=== PATIENT | male | born 1995 | race Two or more races ===

== ENCOUNTER 2020-01-19 11:03 | Emergency (ER) | payer OTHER, SELFPAY ==
--- NOTE | 2020-01-19 | CT_ITS ---
EXAMINATION: CT HEAD WITHOUT CONTRAST. CT FACIAL BONES WITHOUT CONTRAST. CLINICAL INFORMATION: Trauma. Possible nasal fracture. Headache and nausea COMPARISON: None TECHNIQUE: A noncontrast CT of the head and a noncontrast CT of the facial bones with sagittal and coronal reformats. This CT examination was performed using dose optimization techniques as appropriate, variously including the following: *Automated exposure control *Adjustment of mA and/or kV according to patient size (this includes techniques or standardized protocols for targeted exams where dose is matched to indication/reason for exam; i.e. extremities or head) *Use of iterative reconstruction technique. DLP: [id number] FINDINGS: No intra-axial or extra-axial hemorrhage. No acute territorial infarct. Ventricles and sulci appear normal. Preservation of sharpe-white matter differentiation. No mass, mass effect, or midline shift. No fracture. The mastoid air cells and visualized paranasal sinuses are clear. There is no nasal or facial bone fracture. Paranasal sinuses are clear. Ostiomeatal units are patent. Normal globes and orbits. There is a lucency surrounding the crown a partially impacted right posterior mandibular molar. IMPRESSION: No acute intracranial abnormality. No facial bone fracture.
--- NOTE | 2020-01-19 12:48 | PC.NURSE ---
Pt swearing. States has h/a, refusing tylenol. Only wants a perc.
[2020-01-19 12:56] VITALS: BP 133/90; PULSE 61; RESP 18; TEMP 37.1; O2SAT 99; BMI 26.6
--- NOTE | 2020-01-19 13:51 | ED.HEATRA ---
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 Reports dizziness and nausea after the injury, now resolved. MD Complaint: head injury and head pain Onset (ago): hour(s) (5) Mechanism of Injury: work related injury Place: work Loss of Consciousness: no Location of injury: face Severity: moderate Severity scale (1-10): 4 Other Injuries: laceration (small superficial laceration to bridge of nose) Associated symptoms: denies other symptoms Related Data Allergies Allergy/AdvReac Type Severity Reaction Status Date / Time No Known Allergies Allergy Verified 01/19/20 13:36 Review of Systems Constitutional: Constitutional: Reports as per HPI and Reports headache(s) Eyes: Eyes: Reports no additional eye complaints ENT: Reports headache(s), Reports nasal trauma (mild ), Denies neck pain, Reports nose pain (mild ), Denies tinnitus and Denies sinus pain Musculoskeletal: Musculoskeletal: Reports no additional musculoskeletal complaints and Denies neck pain Neurologic: Reports system reviewed and no additional complaints, except as documented and Reports headache(s) Hematologic/Lymphatic: Hematologic/Lymphatic: Reports no additional hematologic/lymphatic complaints PMFSH Past Medical History Attestation statement: The following information was validated with the patient. Medical History No known health problems Social History Social History Alcohol intake: current Alcohol intake frequency: 0-2 drinks per day Smoking Status: Current some day smoker Smoked in Last 30 Days: Yes Use of substances other than those prescribed or required for medical reasons: No Advance Directives: No Advance Directives Information Provided: Yes Physical Exam Vital Signs and I&O and Narrative: Vital Signs and I&O: Vital Signs Temp 98.2 F 01/19/20 14:22 Pulse 64 01/19/20 14:22 Resp 18 01/19/20 14:22 BP 138/68 01/19/20 14:22 Pulse Ox 100 01/19/20 14:22 Intake & Output 01/18/20 01/19/20 01/19/20 18:59 06:59 18:59 Weight 81.647 kg Body Mass Index 26.6 Const: General: cooperative, healthy appearing, comfortable and no acute distress Orientation/consciousness: oriented to person, oriented to place and oriented to time Limitations: no limitations HENMT: Ears: hearing grossly normal bilaterally General nose exam: Normal nares present, Normal nasal mucous membranes and turbinates present, Normal septum present and No nasal discharge present Face and sinus: Yes sinuses nontender, Yes face symmetric and Yes laceration Face images: 1. superficial laceration, mild ecchymosis Mouth: Normal oral and palatal mucosa present Teeth and gingiva: dentition normal Throat: Yes posterior oropharynx normal Eyes: General: appearance normal, both eyes and all related structures Pupils: Equal, round and reactive pupils present Neck: Neck: Yes normal visual inspection and Yes full ROM Chest: Chest palpation & inspection: normal inspection of the chest and normal palpation of entire chest wall Resp: Auscultation: clear to auscultation bilaterally Cardio: Rate: regular rate Rhythm: regular rhythm Heart sounds: S1 normal heart sound present and S2 normal heart sound present Neuro: General: oriented to person, oriented to place and oriented to time Cranial nerves: Yes CN's II-XII intact bilaterally and Yes Equal, round and reactive pupils present Cognition (Neuro): normal cognition Gait exam (Neuro): Normal gait present Motor exam (neuro): 5/5 motor strength present throughout Psych: Appearance: grossly normal Mental Status: mental status grossly normal Speech and movement: Normal speech and movement present Affect: normal affect Attitude: cooperative Course Course Hospital Course: 24 y/o healthy male here with work related injury to superior nasal bone after walking into a fork lift. Possible concussion with initial dizziness/nausea. Now resolved. Will monitor closely in the ER. CT scan of brain/facial bones pending. Low suspicion for nasal bone fracture. Reevaluation(s) Reevaluation #1: CT head and facial bones are negative. No N/V here. Headache improved after Tylenol. Stable for discharge. Time: 15:26 MDM - Head Injury Differential Diagnosis Differential diagnosis: Likely concussion without loss of consciousness, epidural hematoma, closed head injury and postconcussion syndrome Medical Records Attestation: I reviewed the patient's medical records. Critical Care Time Critical Care Time Critical Care Time: No Discharge Plan Discharge Clinical Impression: Concussion Qualifiers: Encounter type: initial encounter Loss of consciousness presence/duration: without LOC Qualified Code(s): S06.0X0A - Concussion without loss of consciousness, initial encounter Patient Disposition: Home, Self-Care Instructions: Concussion (ED) Additional Instructions: If you develop persistent nausea and vomiting, return to the ER for further evaluation. Minimize screen time today, rest, stay hydrated. Take Tylenol or motrin for headache. Stand Alone Forms: Work/School Release
[2020-01-19 14:22] VITALS: BP 138/68; PULSE 64; RESP 18; TEMP 36.8; O2SAT 100
== END 2020-01-19 15:37 | disposition home or self-care (01) ==
PROVIDERS: Emergency Provider Emergency Medicine
DX: S06.0X0A Concussion without loss of consciousness, initial encounter (principal); W22.8XXA Striking against or struck by other objects, initial encounter; F17.200 Nicotine dependence, unspecified, uncomplicated; Y93.89 Activity, other specified; Y92.69 Other specified industrial and construction area as the place of occurrence of the external cause; Y99.0 Civilian activity done for income or pay
CPT/HCPCS: 70450; 70486; 99284

== ENCOUNTER 2020-02-24 10:25 | Emergency (ER) | payer OTHER, SELFPAY ==
[2020-02-24 10:37] VITALS: BP 127/83; PULSE 76; RESP 17; TEMP 36.6; O2SAT 98; BMI 25.8
--- NOTE | 2020-02-24 10:59 | XR_ITS ---
EXAMINATION: RIGHT FOOT AND RIGHT ANKLE. CLINICAL INFORMATION: Crush injury. Pain. COMPARISON: None TECHNIQUE: 3 views right ankle and 2 views right foot. FINDINGS: Right ankle: There is no visible acute fracture, dislocation or subluxation seen. The ankle mortise and subtalar joints are normal. Right foot: There is no visible acute fracture, dislocation or subluxation seen. The soft tissues are normal. XR/XR ankle RT 2V IMPRESSION: Unremarkable right ankle. Unremarkable right foot exam.
--- NOTE | 2020-02-24 10:59 | XR_ITS ---
EXAMINATION: RIGHT FOOT AND RIGHT ANKLE. CLINICAL INFORMATION: Crush injury. Pain. COMPARISON: None TECHNIQUE: 3 views right ankle and 2 views right foot. FINDINGS: Right ankle: There is no visible acute fracture, dislocation or subluxation seen. The ankle mortise and subtalar joints are normal. Right foot: There is no visible acute fracture, dislocation or subluxation seen. The soft tissues are normal. XR/XR foot RT min 3V IMPRESSION: Unremarkable right ankle. Unremarkable right foot exam.
--- NOTE | 2020-02-24 11:10 | ED.LOWEXIN ---
HPI - Extremity Injury (Lower) General Chief Complaint: Extremity Injury, Lower Stated Complaint: R ANKLE INJ AT WORK Time Seen by Provider: 02/24/20 10:53 Source: patient Mode of arrival: ambulatory History of Present Illness HPI Narrative: 24-year-old male with no significant past medical history presenting to the ED complaining of right foot/ankle pain s/p crush injury at work 2 days ago. 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 Has been ambulating with difficulty due to pain. Denies injury to other area. Reports associated tingling and pain with ROM MD complaint: ankle injury and foot injury Related Data Allergies Allergy/AdvReac Type Severity Reaction Status Date / Time No Known Allergies Allergy Verified 01/19/20 13:36 Review of Systems Review of Systems: Constitutional: No Weight loss, No Fever, No Chills Musculoskeletal: + joint pain, No Myalgias, + Joint Swelling Skin: No Skin Lesions, No rash Neuro: No Weakness, +tingling, No Paresthesias PMFSH Past Medical History Attestation statement: The following information was validated with the patient. Medical History No known health problems Social History Social History Alcohol intake: current Alcohol intake frequency: 0-2 drinks per day Smoking Status: Current some day smoker Advance Directives: No Advance Directives Information Provided: Yes Physical Exam Vital Signs: Vital Signs: Last Vital Signs Temp 97.9 F 02/24/20 10:37 Pulse 76 02/24/20 10:37 Resp 17 02/24/20 10:37 BP 127/83 02/24/20 10:37 Pulse Ox 98 02/24/20 10:37 Body Mass Index 25.8 Const: General: cooperative and healthy appearing Orientation/consciousness: patient oriented x3 Limitations: no limitations HENMT: Head: Yes normal to inspection Ears: hearing grossly normal bilaterally General nose exam: Normal external nose present Face and sinus: Yes normal facial exam Eyes: General: appearance normal, both eyes and all related structures EOM: EOMs intact bilaterally Neck: Neck: Yes normal visual inspection Resp: Effort & Inspection: normal respiratory effort Cardio: Peripheral pulses: dorsalis pedis present Skin: Rashes: no rashes Wounds: no wounds Neuro: General: patient oriented x3 Gait exam (Neuro): Normal gait present Extrem: Other: + right ankle/foot with mild swelling > medial aspect with slight erythema to medial malleolus. +ttp to ankle and proximal foot. Limited range of motion to ankle 2/2 pain. toes ROM WNL, NV intact, sensation intact to light touch General: Yes normal to inspection Course Course Course Narrative: -foot and ankle x-ray unremarkable > patient placed in AMEYA wrap in the ED for comfort/stability MDM - Extremity Injury (Lower) MDM Narrative Medical decision making narrative: Rule out fracture versus sprain Discharge Plan Discharge Clinical Impression: Ankle sprain and strain Patient Disposition: Home, Self-Care Instructions: Ankle Sprain (ED) Additional Instructions: Your x-rays were unremarkable Your placed in an Ameya wrap in the ED, where it at home for comfort/stability, you may take it off to shower/sleep Ice and elevate her ankle/foot Take Tylenol and Motrin at home for pain/swelling Follow up with your doctor Referrals: Physician,None [Primary Care Provider] - 1 week (As needed)
== END 2020-02-24 11:47 | disposition home or self-care (01) ==
PROVIDERS: Emergency Provider Emergency Medicine
DX: M25.571 Pain in right ankle and joints of right foot (principal); F17.200 Nicotine dependence, unspecified, uncomplicated; Z71.6 Tobacco abuse counseling
CPT/HCPCS: 73600; 73630; 99283

== ENCOUNTER 2020-03-05 08:51 | Emergency (ER) | payer OTHER, SELFPAY ==
[2020-03-05 09:00] VITALS: BP 106/59; PULSE 61; RESP 16; TEMP 36.6; O2SAT 98; BMI 25.2
--- NOTE | 2020-03-05 09:18 | ED.LOWEXIN ---
HPI - Extremity Injury (Lower) General Chief Complaint: Extremity Injury, Lower Stated Complaint: work note Time Seen by Provider: 03/05/20 09:18 History of Present Illness HPI Narrative: Patient is here for work clearance to return to work after a right ankle injury 2 weeks ago, he says he is all better has no limp no pain and wants to go back to work Related Data Allergies Allergy/AdvReac Type Severity Reaction Status Date / Time No Known Allergies Allergy Verified 01/19/20 13:36 Review of Systems Review of Systems: Patient denies right ankle pain, denies right ankle swelling denies numbness or weakness denies fever or chills denies any problem walking or using right ankle Yes all other systems are reviewed and are negative PMFSH Past Medical History Source: nursing notes reviewed Medical History No known health problems Social History Social History Alcohol intake: current Alcohol intake frequency: 0-2 drinks per day Smoking Status: Current some day smoker Advance Directives: No Advance Directives Information Provided: Yes Physical Exam Vital Signs: Vital Signs: Last Vital Signs Temp 97.8 F 03/05/20 09:00 Pulse 61 03/05/20 09:00 Resp 16 03/05/20 09:00 BP 106/59 L 03/05/20 09:00 Pulse Ox 98 03/05/20 09:00 Body Mass Index 25.2 General appearance no distress, A&O x3 Neck is supple Respiratory no distress Extremities the right ankle is normal in appearance the skin is normal is no ecchymosis no swelling no tenderness there is a full range of motion He is tested walking he can walk on his toes he can walk with a normal gait Neuro no focal deficit, no motor or sensory deficit in right leg Course Course Course Narrative: Patient seems to be fully recovered and is given a note clearing him to return to work Discharge Plan Discharge Clinical Impression: Ankle injury Qualifiers: Encounter type: subsequent encounter Laterality: right Qualified Code(s): S99.911D - Unspecified injury of right ankle, subsequent encounter Patient Disposition: Home, Self-Care Additional Instructions: Right ankle is better in your okay to work return to work Follow with [facility] if needed for any further problems from this work injury Referrals: [facility] [Provider Group] - 2 days Stand Alone Forms: Work/School Release Interventions: ED Discharge Assessment Last Done: 03/05/20 09:31 Discharge Date/Time: 03/05/20 09:30
== END 2020-03-05 09:30 | disposition home or self-care (01) ==
PROVIDERS: Emergency Provider Emergency Medicine
DX: S99.911A Unspecified injury of right ankle, initial encounter (principal); M25.571 Pain in right ankle and joints of right foot; X58.XXXA Exposure to other specified factors, initial encounter; Y93.9 Activity, unspecified; Y92.9 Unspecified place or not applicable; Y99.9 Unspecified external cause status; F17.200 Nicotine dependence, unspecified, uncomplicated; Z71.6 Tobacco abuse counseling
CPT/HCPCS: 99283

== ENCOUNTER 2020-05-08 14:27 | Emergency (ER) | payer OTHER, SELFPAY ==
[2020-05-08 15:05] VITALS: BP 116/77; PULSE 75; RESP 20; TEMP 36.9; O2SAT 98; BMI 26.6
--- NOTE | 2020-05-08 15:10 | ED.MEDCLEAR ---
HPI - Medical Clearance General Chief complaint: Medical Clearance <Emely Escobar NP - Last Filed: 05/08/20 15:14> Stated complaint: MED CLEARANCE <Emely Escobar NP - Last Filed: 05/08/20 15:14> Time Seen by Provider: 05/08/20 15:05 <Emely Escobar NP - Last Filed: 05/08/20 15:14> Source: patient <Emely Escobar NP - Last Filed: 05/08/20 15:14> Mode of arrival: ambulatory <Emely Escobar NP - Last Filed: 05/08/20 15:14> Limitations: no limitations <Emely Escobar NP - Last Filed: 05/08/20 15:14> History of Present Illness HPI Narrative: Pt tells me 03/05 he had his RLE pinned between a wall and a forklift with a pallet. He was seen in the ED and had negative x-rays. he tells me he returned to work for a short time but then was laid off. He has had persistent pain in his RLE since then but is here today for a note so he can return to work. He tells me they want him back there working and even though he has pain he wants to return to work. He has not followed up with [facility] or occupational health. <Emely Escobar NP - Last Filed: 05/08/20 15:14> MD complaint: medical clearance requested <Emely Escobar NP - Last Filed: 05/08/20 15:14> Onset (ago): month(s) <Emely Escobar NP - Last Filed: 05/08/20 15:14> Reason for Medical Clearance: other trauma <Emely Escobar NP - Last Filed: 05/08/20 15:14> Place: work <Emely Escobar NP - Last Filed: 05/08/20 15:14> Traumatic Symptoms: extremity injury <Emely Escobar NP - Last Filed: 05/08/20 15:14> Associated Symptoms: denies other symptoms <Emely Escobar NP - Last Filed: 05/08/20 15:14> Treatments Prior to Arrival: none <Emely Escobar NP - Last Filed: 05/08/20 15:14> Related Information Allergies/Adverse reactions: Allergies Allergy/AdvReac Type Severity Reaction Status Date / Time No Known Allergies Allergy Verified 01/19/20 13:36 <Emely Escobar NP - Last Filed: 05/08/20 15:14> Review of Systems Review of Systems: Yes all other systems are reviewed and are negative <Emely Escobar NP - Last Filed: 05/08/20 15:14> Constitutional: Constitutional: Reports no additional constitutional complaints, Denies body ache(s), Denies chills, Denies fever(s), Denies headache(s) and Denies weakness <Emely Escobar NP - Last Filed: 05/08/20 15:14> Eyes: Eyes: Reports no additional eye complaints and Denies change in vision <Emely Escobar NP - Last Filed: 05/08/20 15:14> ENT: Reports system reviewed and no additional complaints, except as documented, Denies dizziness, Denies headache(s), Denies nasal congestion, Denies nasal discharge and Denies neck pain <Emely Escobar NP - Last Filed: 05/08/20 15:14> Cardiovascular: Cardiovascular: Reports no additional cardiovascular complaints, Denies chest pain, Denies leg edema and Denies dyspnea <Emely Escobar NP - Last Filed: 05/08/20 15:14> Respiratory: Respiratory: Reports no additional respiratory complaints, Denies cough and Denies dyspnea <Emely Escobar NP - Last Filed: 05/08/20 15:14> Gastrointestinal: Gastrointestinal: Reports no additional gastrointestinal complaints, Denies abdominal pain, Denies diarrhea, Denies nausea and Denies vomiting <Emely Escobar NP - Last Filed: 05/08/20 15:14> Genitourinary: Genitourinary: Denies urinary incontinence <Emely Escobar NP - Last Filed: 05/08/20 15:14> Musculoskeletal: Musculoskeletal: Reports no additional musculoskeletal complaints, Denies back pain, Denies deformity, Reports arthralgias, Reports joint swelling, Denies neck pain, Denies numbness and Denies tingling <Emely Escobar NP - Last Filed: 05/08/20 15:14> Integumentary/Breasts: Skin/Breast: Reports system reviewed and no additional complaints, except as docu and Denies rash <Emely Escobar NP - Last Filed: 05/08/20 15:14> Neurologic: Reports system reviewed and no additional complaints, except as documented, Denies Abnormal speech present, Denies dizziness, Denies headache(s), Denies numbness, Denies tingling and Denies weakness <Emely Escobar NP - Last Filed: 05/08/20 15:14> [facility] Past Medical History Attestation statement: The following information was validated with the patient. <Emely Escobar NP - Last Filed: 05/08/20 15:14> Source: old records reviewed and nursing notes reviewed <Emely Escobar NP - Last Filed: 05/08/20 15:14> Medical History: Medical History No known health problems <Emely Escobar NP - Last Filed: 05/08/20 15:14> Social History Social History: Social History Alcohol intake: current Alcohol intake frequency: 0-2 drinks per day Smoking Status: Current some day smoker <Emely Escobar NP - Last Filed: 05/08/20 15:14> Physical Exam Vital Signs: Vital Signs: Last Vital Signs Temp 98.4 F 05/08/20 15:05 Pulse 75 05/08/20 15:05 Resp 20 05/08/20 15:05 BP 116/77 05/08/20 15:05 Pulse Ox 98 05/08/20 15:05 Body Mass Index 26.6 <Emely Escobar NP - Last Filed: 05/08/20 15:14> Vital Signs: Last Vital Signs Temp 98.4 F 05/08/20 15:05 Pulse 75 05/08/20 15:05 Resp 20 05/08/20 15:05 BP 116/77 05/08/20 15:05 Pulse Ox 98 05/08/20 15:05 Body Mass Index 26.6 <Herman Garay MD - Last Filed: 05/16/20 08:20> Const: General: cooperative, healthy appearing, comfortable and no acute distress <Emely Escobar NP - Last Filed: 05/08/20 15:14> Orientation/consciousness: patient oriented x3 <Emely Escobar NP - Last Filed: 05/08/20 15:14> Limitations: no limitations <Emely Escobar NP - Last Filed: 05/08/20 15:14> HENMT: Head: Yes normal to inspection <Emely Escobar NP - Last Filed: 05/08/20 15:14> Ears: hearing grossly normal bilaterally <Emely Escobar NP - Last Filed: 05/08/20 15:14> General nose exam: Normal external nose present <Emely Escobar NP - Last Filed: 05/08/20 15:14> Face and sinus: Yes normal facial exam <Emely Escobar NP - Last Filed: 05/08/20 15:14> Mouth: Normal oral and palatal mucosa present <Emely Escobar NP - Last Filed: 05/08/20 15:14> Throat: Yes posterior oropharynx normal <Emely Escobar NP - Last Filed: 05/08/20 15:14> Eyes: General: appearance normal, both eyes and all related structures <Emely Escobar NP - Last Filed: 05/08/20 15:14> Pupils: Equal, round and reactive pupils present <Emely Escobar NP - Last Filed: 05/08/20 15:14> Neck: Neck: Yes normal visual inspection <Emely Escobar NP - Last Filed: 05/08/20 15:14> Chest: Chest palpation & inspection: normal inspection of the chest <Emely Escobar NP - Last Filed: 05/08/20 15:14> Resp: Effort & Inspection: normal respiratory effort <Emely Escobar NP - Last Filed: 05/08/20 15:14> Auscultation: clear to auscultation bilaterally <Emely Escobar [employer] SUPERVIS[employer] - Last Filed: 05/08/20 15:14> Cardio: Rate: regular rate <Emely Escobar [employer]PER[employer] - Last Filed: 05/08/20 15:14> Rhythm: regular rhythm <Emely Escobar [employer]PER[employer] - Last Filed: 05/08/20 15:14> Peripheral pulses: Peripheral pulses 2+ throughout <Emely Escobar [employer]PER[employer] - Last Filed: 05/08/20 15:14> GI: Inspection: Yes normal to inspection <Emely Escobar NP - Last Filed: 05/08/20 15:14> Palpation (GI): Soft to palpation and nontender <Emely Escobar [employer] - Last Filed: 05/08/20 15:14> Auscultation: normal bowel sounds <Emely Escobar [employer] - Last Filed: 05/08/20 15:14> Back/Spine/Pelvis: Thoracic/Lumbar Spine: thoracic and lumbar spine normal to inspection <Emely Escobar [employer] - Last Filed: 05/08/20 15:14> Skin: General skin exam: no rashes or lesions noted <Emely Escobar NP - Last Filed: 05/08/20 15:14> Neuro: General: patient oriented x3, no focal motor deficits and normal sensation to monofilament <Emely Escobar [employer]PER[employer] - Last Filed: 05/08/20 15:14> Cranial nerves: Yes Equal, round and reactive pupils present <Emely Escobar [employer]PER[employer] - Last Filed: 05/08/20 15:14> Cognition (Neuro): normal cognition <Emely Escobar NP - Last Filed: 05/08/20 15:14> Speech: No Abnormal speech present <Emely Escobar NP - Last Filed: 05/08/20 15:14> Gait exam (Neuro): Normal gait present <Emely Escobar NP - Last Filed: 01/19/21 15:14> Motor exam (neuro): 5/5 motor strength present throughout <Emely Escobar NP - Last Filed: 05/08/20 15:14> Extrem: Other: Pain to the right lateral ankle, worsened with weight bearing. Pain with dorsi and plantar flexion. Palpable pulses distally. NV intact distally. <Emely Escobar NP - Last Filed: 05/08/20 15:14> General: Yes normal to inspection <Emely Escobar NP - Last Filed: 05/08/20 15:14> Course Course Course Narrative: 25 yo male here with RLE pain seeking clearance to return to work however has persistent pain with weight bearing and with palpation. Explained to patient he needs to follow-up with work connection to return to work. Reviewed worrisome signs/symptoms with patient and when to return to ED. comfortable with discharge home. <Emely Escobar NP - Last Filed: 05/08/20 15:14> I have reviewed the chart <Herman Garay MD - Last Filed: 05/16/20 08:20> Discharge Plan Discharge Clinical Impression: Chronic ankle pain <Emely Escobar NP - Last Filed: 05/08/20 15:14> Patient Disposition: Home, Self-Care <Emely Escobar NP - Last Filed: 05/08/20 15:14> Instructions: Arthralgia (ED) <Emely Escobar NP - Last Filed: 05/08/20 15:14> Additional Instructions: Call work [facility] to see them to be cleared to return to work as this was a work related injury [facility] [phone] <Emely Escobar NP - Last Filed: 05/08/20 15:14> Interventions: ED Discharge Assessment Last Done: 05/08/20 15:26 <Emely Escobar NP - Last Filed: 05/08/20 15:14> Discharge Date/Time: 05/08/20 15:27 <Emely Escobar NP - Last Filed: 05/08/20 15:14>
== END 2020-05-08 15:27 | disposition home or self-care (01) ==
PROVIDERS: Emergency Provider Emergency Medicine
DX: Z04.2 Encounter for examination and observation following work accident (principal); M25.571 Pain in right ankle and joints of right foot
CPT/HCPCS: 99283

== ENCOUNTER → 2020-05-09 14:34 | Outpatient (BNVA) | payer OTHER, SELFPAY | PROVIDERS: Visit Provider Internal Medicine | DX: S90.31XD Contusion of right foot, subsequent encounter (principal); S90.01XD Contusion of right ankle, subsequent encounter; X58.XXXD Exposure to other specified factors, subsequent encounter | CPT/HCPCS: 73600; 73630; 99203 ==

== ENCOUNTER 2022-02-03 19:15 | Emergency (ER) | payer SELFPAY ==
--- NOTE | ~2022-02-03 | XR_ITS ---
EXAMINATION: XR FOOT, LEFT CLINICAL INFORMATION: Pain with walking COMPARISON: Right foot radiographs 05/09/2020 TECHNIQUE: AP, lateral, and oblique views of the left foot. FINDINGS: The bones and soft tissues are normal. No fracture. Alignment is anatomic. Joint spaces are maintained. XR/XR foot LT 2V IMPRESSION: Normal left foot.
[2022-02-03 19:37] VITALS: BP 130/72; PULSE 69; RESP 17; TEMP 36.8; O2SAT 99; BMI 27.3
[2022-02-03 22:11] VITALS: BP 118/80; PULSE 64; RESP 20; TEMP 36.8; O2SAT 99
--- NOTE | 2022-02-03 22:40 | ED.GENADULT ---
HPI - General Adult General Chief complaint: Extremity Injury, Lower Stated complaint: foot pain Time Seen by Provider: 02/03/22 21:58 Source: patient Mode of arrival: ambulatory Limitations: no limitations History of Present Illness HPI narrative: 26 yold male presents to the ED for left foot pain. patient unware of any trauma to foot. patient states Thursday he went walking and pumpkin pickin with his kids and ever since he has pain in left foot. patinet denies any blunt trauma to foot, falling, redness, leg swelling, calf pain, bluish black discoloration, or numbness/tinling Related Data Previous Rx's Medication Instructions Recorded naproxen 500 mg tablet 500 mg PO BID PRN pain 7 days #14 02/03/22 tabs prednisone 20 mg tablet 40 mg PO DAILY 5 days #10 tabs 02/03/22 Allergies Allergy/AdvReac Type Severity Reaction Status Date / Time No Known Allergies Allergy Verified 02/03/22 19:37 Review of Systems Review of Systems: left foot pain Yes all other systems are reviewed and are negative [facility] Past Medical History Medical History No known health problems Social History Social History Alcohol intake: current Alcohol intake frequency: 0-2 drinks per day Advance Directives: No Advance Directives Information Provided: No Physical Exam ED Vital Signs: Vital Signs - 24 hr 02/03/22 19:37 02/03/22 22:11 Temperature 98.3 F 98.2 F Pulse Rate 69 64 Respiratory Rate 17 20 Blood Pressure 130/72 118/80 Pulse Oximetry 99 99 Oxygen Delivery Method Room Air Room Air BMI result Body Mass Index 27.3 Const General: cooperative, healthy appearing, comfortable, no acute distress, well developed, alert, awake and Physically active Orientation/consciousness: patient oriented x3 HENMT Head: Yes normal to inspection, Yes No palpable skull fracture present, Yes normocephalic, Yes atraumatic and No abrasion Eyes General: appearance normal, both eyes and all related structures Neck Neck: Yes normal visual inspection, Yes full ROM, Yes no lymphadenopathy, Yes no meningeal signs, Yes trachea midline, Yes supple, No anterior neck swelling and No tender Chest Chest palpation & inspection: normal inspection of the chest and normal palpation of entire chest wall Resp Effort & Inspection: normal respiratory effort and able to speak in complete sentences Auscultation: clear to auscultation bilaterally Cardio Jugular venous distension: no JVD Heart sounds: S1 normal heart sound present and S2 normal heart sound present GI Inspection: Yes normal to inspection and No abdominal wall ecchymosis Palpation (GI): Soft to palpation, not firm, nontender, no guarding and not rigid General: No CVA tenderness and Yes no CVA tenderness Back/Spine/Pelvis Back: no CVA tenderness, No CVA tenderness and No back tenderness Skin General skin exam: no rashes or lesions noted and elasticity normal Neuro General: patient oriented x3, gait normal, tone normal and no meningeal signs Cranial nerves: Yes CN's II-XII intact bilaterally Extrem General: Yes normal to inspection and Yes full ROM Ankle/foot/toe images: 1. tenderness on palpation. negative for any ecchymosis, redness, swelling, deformity, crepitus, coldness, or hotness. Rest of left lower extremity normal. Negative for calf tenderness leg swelling knee swelling redness or deformity. Motor, neuro, and vascular exam is intact Psych Appearance: grossly normal, well kempt and not disheveled Course Course Course Narrative: Foot xray ordered Reevaluation(s) Reevaluation #1: FOot xray normal. Discharge with NSAIDS and prednisone Time: 22:48 Medical Decision Making [facility] Narrative Medical decision making narrative: FOot pain. Foot sprain Discharge Plan Discharge Clinical Impression: Foot pain Patient Disposition: Home, Self-Care Instructions: Foot Sprain (ED) Additional Instructions: Return to the ED immediately for any swelling, redness, bluish black discoloration, ecchymosis, leg swelling, calf pain, red streaks, chest pain, shortness of breath, inability to walk, or any other concerning symptoms. Please follow up with PCP Prescriptions: New naproxen 500 mg tablet 500 mg PO BID PRN (Reason: pain) 7 Days Qty: 14 0RF prednisone 20 mg tablet 40 mg PO DAILY 5 Days Qty: 10 0RF Stand Alone Forms: Work/School Release Interventions: ED Discharge Assessment Last Done: 02/03/22 23:03 Discharge Date/Time: 02/03/22 23:03 Print Language: Nepali
[2022-02-03] MEDS: Ibuprofen 800 MG TABLET PO (23:00)
[2022-02-03] MEDS: predniSONE 20 MG TABLET 60 MG PO (23:00)
--- NOTE | 2022-02-03 23:02 | PC.NURSE ---
Pt medicated. Discharge intructions provided. Pt verbalizes understanding. All questions answered.
== END 2022-02-03 23:03 | disposition home or self-care (01) ==
PROVIDERS: Emergency Provider Internal Medicine
DX: M79.672 Pain in left foot (principal)
CPT/HCPCS: 73620; 99283; 99284